=== PATIENT | male | born 1985 | race American Indian/Alaskan Native ===

== ENCOUNTER 2018-02-28 11:05 | Emergency (ER) | payer MEDICAID ==
[2018-02-28 11:40] VITALS: BP 121/69
[2018-02-28] MEDS ORDERED: MOTRIN PO ONE (13:34)
--- NOTE | 2018-02-28 13:34 | Emergency Department Report ---
Blank Doc - Documentation Documentation: Patient is a 32-year-old -[place] male who is presenting with left- sided testicular pain. Patient states he has had no injury to the testicles started having some intermittent pain in left testicle about 4 days ago that now is constant. Patient denies any STD type symptoms as well as dysuria. Patient states he has no swelling. Ultrasound of the testicle as well as a urinalysis will be done
[2018-02-28 13:48] LABS: Bilirubin,Urine NEG (Negative); Blood,Urine NEG (Negative); Color,Urine Yellow (Yellow); Mucus,Urine 3+ /HPF; Protein,Urine <15 mg/dL mg/dL (Negative); Urobilinogen,Urine < 2.0 mg/dL (<2.0)
--- NOTE | 2018-02-28 15:00 | Ultrasound Report ---
FINAL REPORT PROCEDURE: US TESTICULAR DOPPLER COMP TECHNIQUE: Real-time pablo-scale and color flow Doppler sonography in multiple planes of the scrotum, testicles, and epididymes was performed. Velocity spectral waveform analysis Doppler imaging of the arterial inflow and venous outflow of the testicles was performed with image documentation[place] [address] [place] [address] HISTORY: left testicle pain COMPARISON: No prior studies are available for comparison. FINDINGS: The echogenicity of the right and left testicles appears normal. No masses are visualized. The right testicle measures 4.4 x 2.4 x 3.3 centimeter. The left testicle measures 3.9 x 2.3 x 2.8 centimeter. The epididymis are unremarkable. Arterial and venous flow seen in the right and left testicles. No significant hydrocele visualized. IMPRESSION: Negative exam.
--- NOTE | 2018-02-28 15:29 | Emergency Department Report ---
ED Male HPI - General Chief complaint: Urogenital-Male Stated complaint: PAIN IN GENITAL Time Seen by Provider: 02/28/18 13:26 Source: patient Mode of arrival: Ambulatory Limitations: No Limitations - History of Present Illness Initial comments: Patient is a 32-year-old -[place] male who is presenting with left- sided testicular pain. Patient states he has had no injury to the testicles started having some intermittent pain in left testicle about 4 days ago that now is constant. Patient denies any STD type symptoms as well as dysuria. Patient states he has no swelling. MD Complaint: testicle pain -: days(s) (4) Severity scale (0 -10): 6 Consistency: intermittent Improves with: supine Worsens with: palpation, movement denies other symptoms - Related Data Previous Rx's Medication Instructions Recorded Last Taken Type Ciprofloxacin HCl [Cipro] 500 mg PO QDAY #3 tablet 02/28/18 Unknown Rx Allergies Allergy/AdvReac Type Severity Reaction Status Date / Time No Known Allergies Allergy Unverified 02/28/18 11:38 ED Review of Systems ROS: Stated complaint: PAIN IN GENITAL Other details as noted in HPI ED Past Medical Hx - Past Medical History Previous Medical History?: No - Surgical History Past Surgical History?: No - Social History Smoking Status: Current Every Day Smoker Substance Use Type: Marijuana - Medications Home Medications: Home Medications Medication Instructions Recorded Confirmed Last Taken Type Ciprofloxacin HCl [Cipro] 500 mg PO QDAY #3 tablet 02/28/18 Unknown Rx ED Physical Exam - General Limitations: No Limitations ED Course Vital Signs 02/28/18 02/28/18 11:38 13:41 Temperature 98.8 F Pulse Rate 54 L Respiratory 20 18 Rate Blood Pressure 121/69 O2 Sat by Pulse 98 Oximetry ED Medical Decision Making - Radiology Data Radiology results: report reviewed, image reviewed FINDINGS: The echogenicity of the right and left testicles appears normal. No masses are visualized. The right testicle measures 4.4 x 2.4 x 3.3 centimeter. The left testicle measures 3.9 x 2.3 x 2.8 centimeter. The epididymis are unremarkable. Arterial and venous flow seen in the right and left testicles. No significant hydrocele visualized. IMPRESSION: Negative exam. Transcribed By: NYA Dictated By: RICKEY KLEIN MD Electronically Authenticated By: RICKEY KLEIN MD Signed Date/Time: 02/28/18 1454 DD/ Critical care attestation.: If time is entered above; I have spent that time in minutes in the direct care of this critically ill patient, excluding procedure time. ED Disposition Clinical Impression: Epididymitis Disposition: DC- TO HOME OR SELFCARE Is pt being admited?: No Does the pt Need Aspirin: No Condition: Stable Instructions: Epididymitis (ED) Additional Instructions: Please complete antibiotics as prescribed. Ibuprofen or Tylenol for pain and discomfort. Prescriptions: Ciprofloxacin HCl [Cipro] 500 mg PO QDAY #3 tablet Referrals: IRENE THOMPSON MD [Primary Care Provider] - 3-5 Days Forms: STI Treatment and Prevention
== END 2018-02-28 16:18 | disposition home or self-care (01) ==
LOC: ED 11:05
DX: N45.1 Epididymitis (principal); F17.200 Nicotine dependence, unspecified, uncomplicated; F12.10 Cannabis abuse, uncomplicated
CPT/HCPCS: 81001; 93975